=== PATIENT | male | born 1945 ===

== ENCOUNTER 2021-03-29 06:08 | Observation (INO) ==
[~2021-03-29 06:08] MED LIST: Buffered Lidocaine 1% SYRIN 1 ml INTRADERM ONE; Lactated Ringers 1000 ml BAG 1,000 ML IV SCH
[2021-03-29] MEDS ORDERED: Lidocaine 2% PF 5 ML VIAL ONE (06:57)
[2021-03-29] MEDS ORDERED: fentaNYL 100 mcg/2 ml 50 MCG/ML VIAL ONE (06:57)
[2021-03-29] MEDS ORDERED: Midazolam 2 mg/2 ml VIAL 1 mg/ml 2 ml VIAL (2 mg) ONE (06:57)
[2021-03-29] MEDS ORDERED: Ondansetron 4 mg VIAL 2 MG/ML 2 ml VIAL ONE (06:57)
[2021-03-29] MEDS ORDERED: Propofol 10 MG/ML 20 ML BTL ONE ×2 (06:57→10:37)
[2021-03-29] MEDS ORDERED: Dexamethasone IV 4 MG/ML VIAL 1 ml VIAL ONE (06:57)
[2021-03-29] MEDS ORDERED: ceFAZolin 2 GM PREMIX 2 GM/50 ML BAG ONE (07:07)
[2021-03-29] MEDS ORDERED: Ropivacaine 5 MG/ML 20 ML VIAL 0.5% (100 MG) ONE ×2 (07:19→10:11)
[2021-03-29] MEDS ORDERED: Glycopyrrolate IV 0.2 MG/ML 1 ML VIAL ONE ×3 (08:24→11:04)
[2021-03-29] MEDS ORDERED: Phenylephrine IV 10 MG/ML 1 ml VIAL ONE ×2 (09:10→12:48)
[2021-03-29] MEDS ORDERED: EPHEDrine (Pressors) 50 MG/ML VIAL ONE (09:15)
[2021-03-29] MEDS ORDERED: Acetaminophen IV 1 GM/100ML 100 ML IV ONE (10:23)
[2021-03-29] MEDS ORDERED: Lactulose 30 ml UDC PO PRN (11:02)
[2021-03-29] MEDS ORDERED: Ondansetron 4 mg VIAL 2 MG/ML 2 ml VIAL IV PRN (11:02)
[2021-03-29] MEDS ORDERED: Morphine 2 MG/ML SYRINGE IV PRN (11:02)
[2021-03-29] MEDS ORDERED: Magnesium Hydroxide LIQ 30 ML UDC PO PRN (11:02)
[2021-03-29] MEDS ORDERED: diPHENhydraMINE 25 mg TAB PO PRN (11:02)
[2021-03-29] MEDS ORDERED: Ondansetron ODT 4 mg TAB 4 MG TAB PO PRN (11:02)
[2021-03-29] MEDS ORDERED: diPHENhydraMINE IV 50 MG/ML 1 ml VIAL (BENADRYL) IV PRN (11:02)
[2021-03-29] MEDS: Lactated Ringers 1000 ml BAG 1,000 ML IV SCH ×2 (15:57→21:40)
[2021-03-29] MEDS: ceFAZolin 1 GM ADVAN 1 GM in NS 0.9% 50 ML 50 ML IVPB SCH (16:36)
[2021-03-29] MEDS ORDERED: CMC:Epleronone 25 mg TAB (NF) PO SCH (18:00)
[2021-03-29] MEDS: Magnesium Hydroxide LIQ 30 ML UDC PO SCH (21:34)
[2021-03-30] MEDS: ceFAZolin 1 GM ADVAN 1 GM in NS 0.9% 50 ML 50 ML IVPB SCH ×2 (00:23→08:43)
[2021-03-30 05:57] LABS: Hematocrit 32 % (42-52); Hemoglobin 10.7 g/dL (14.0-18.0); Mean Platelet Volume 8.3 fL (7.4-10.4); Platelet Count 182 10^3/uL (150-450)
[2021-03-30 06:24] LABS: Potassium 4.3 mmol/L (3.5-5.0)
[2021-03-30 06:29] LABS: eGFR CKD-EPI 95.9 (>60)
[2021-03-30] MEDS: Magnesium Hydroxide LIQ 30 ML UDC PO SCH (08:45)
[2021-03-30] MEDS ORDERED: Vitamin THERAPEUTIC TAB PO SCH (09:00)
[2021-03-30 12:37] VITALS: BP 121/63
== END 2021-03-30 13:05 | disposition home or self-care (01) ==
LOC: OR 06:08 → SSU 06:08
PROVIDERS: ADMIT Orthopaedic Surgery Adult Reconstructive Orthopaedic Surgery; ATTEND Orthopaedic Surgery Adult Reconstructive Orthopaedic Surgery